=== PATIENT | male | born 1960 | race Caucasian/White ===

== ENCOUNTER 2022-04-27 19:57 | Emergency (ER) | payer OTHER ==
[~2022-04-27] VITALS: Ht 188 cm; Wt 110.2 kg
[~2022-04-27 19:57] MED LIST: CILOXAN5 ML OU; COZAAR100 MG PO; TYLENOL WITH C1 EACH PO
== END 2022-04-27 21:56 | disposition home or self-care (01) ==
LOC: ED 19:57
DX: S06.0X9A Concussion with loss of consciousness of unspecified duration, initial encounter (principal); I10 Essential (primary) hypertension; Z88.0 Allergy status to penicillin; Z88.5 Allergy status to narcotic agent; W01.0XXA Fall on same level from slipping, tripping and stumbling without subsequent striking against object, initial encounter
CPT/HCPCS: 70450; 70486; 99284-25